=== PATIENT | female | born 1990 | race Caucasian/White ===

== ENCOUNTER 2019-04-05 18:01 | Inpatient (IN) ==
[2019-04-05] MEDS ORDERED: ZOFRAN IV PRN (18:05)
[2019-04-05] MEDS ORDERED: STADOL IV PRN ×2 (18:05)
[2019-04-05] MEDS ORDERED: PEPCID PO PRN (18:05)
[2019-04-05] MEDS ORDERED: PEPCID PO ONE (18:05)
[2019-04-05] MEDS ORDERED: BRETHINE SUBQ PRN (18:05)
[2019-04-05] MEDS ORDERED: REGLAN PO ONE (18:05)
[2019-04-05] MEDS ORDERED: LR 1,000 ML IV ONE (18:05)
[2019-04-05] MEDS ORDERED: TYLENOL PO PRN (18:05)
[2019-04-05] MEDS ORDERED: PEPCID IV PRN (18:05)
[2019-04-05] MEDS ORDERED: KEFZOL 1 GM/D5W 1 GM/50 ML IVPB IV PRN (18:05)
[2019-04-05] MEDS ORDERED: CYTOTEC VAG ONE (18:05)
[2019-04-05] MEDS ORDERED: AMBIEN PO PRN (18:05)
[2019-04-05] MEDS ORDERED: PITOCIN 30 UNITS/NS 30 UNIT/500 ML IV.SOLN IV SCH (18:15)
[2019-04-05 18:39] LABS: BASO# 0.02 X1000 (0.0-0.2); BASO% 0.1 % (0.0-0.8); EOS# 0.11 X1000 (0.0-0.7); EOS% 0.7 % (0.0-10.0); HEMATOCRIT 36.3 % (37.0-47.0); HEMOGLOBIN 11.9 g/dL (12.0-16.0); IMM GRAN# 0.07 X1000 (0.0-0.04); IMM GRAN% 0.4 % (0.0-0.5); LYMPH# 2.43 X1000 (1.2-3.4); LYMPH% 14.4 % (20.5-51.1); MCH 27.2 PG (27-31); MCHC 32.8 g/dL (33-37); MCV 82.9 FL (81-99); MONO# 1.09 X1000 (0.11-0.59); MONO% 6.5 % (1.7-9.3); NEUT# 13.15 X1000 (1.4-6.5); NEUT% 77.9 % (42.2-75.2); PLT 316 X1000 (130-400); RBC 4.38 XMIL (4.2-5.4); RDW 14.9 % (11.5-14.5); WBC 16.87 X1000 (4.8-10.8)
[2019-04-05 19:04] LABS: UR AMPHETAMINES QUAL NONE DETECTED (NONE DETECT); UR BARBITUATES QUAL NONE DETECTED (NONE DETECT); UR BENZODIAZEPIN QUAL NONE DETECTED (NONE DETECT); UR CANNABINOIDS QUAL NONE DETECTED (NONE DETECT); UR COCAINE QUAL NONE DETECTED (NONE DETECT); UR METHADONE QUAL NONE DETECTED (NONE DETECT); UR METHAMPHETAMINE QUAL NONE DETECTED (NONE DETECT); UR OPIATES QUAL NONE DETECTED (NONE DETECT); UR OXYCODONE QUAL NONE DETECTED (NONE DETECT); UR PCP QUAL NONE DETECTED (NONE DETECT); UR PROPOXYPHENE QUAL NONE DETECTED (NONE DETECT); UR TCA QUAL NONE DETECTED (NONE DETECT)
[2019-04-05] MEDS ORDERED: CYTOTEC ONE (20:20)
[2019-04-05] MEDS ORDERED: LR 1,000 ML IV SCH (20:30)
[2019-04-05] MEDS: CYTOTEC VAG SCH (20:32)
--- NOTE | 2019-04-05 22:16 | HISTORY AND PHYSICAL ---
HISTORY OF PRESENT ILLNESS: The patient 29-year-old white female, G1, P0 at 39 weeks gestation by early ultrasound, who is scheduled for induction of labor. The patient's course, she had a 14 week ultrasound scan which identified her due date as 04/12/2019. She had an abnormal quad screen and was seen by the maternal specialist and had a normal level 2 ultrasound and no other abnormalities during this . PAST MEDICAL HISTORY: Unremarkable. PAST SURGICAL HISTORY: None. PAST OB HISTORY: G1. DAIRY NUTRITION SPECIALIST HISTORY: Menarche at age 20. FAMILY HISTORY: Significant for diabetes mellitus. REVIEW OF SYSTEMS: All systems reviewed and noncontributory. SOCIAL HISTORY: Tobacco use, 1 pack per week. Alcohol none. ALLERGIES: No known drug allergies. MEDICATIONS: vitamins. PHYSICAL EXAMINATION: VITAL SIGNS: Height 5 feet 6 inches, weight 219 pounds. Temperature 96.7 degrees, blood pressure 111/61, pulse of 88, respirations 18, heart rate 135 with positive accelerations. HEENT: Pupils equal, round, reactive to light and accommodation. Extraocular movements intact. Oropharynx clear. NECK: Supple. No thyromegaly. LUNGS: Clear to auscultation. HEART: Regular rate and rhythm. ABDOMEN: Gravid, nontender. Cervix was 1 cm dilated, 40% effaced, -2 station. EXTREMITIES: No clubbing, cyanosis, or edema noted. NEUROLOGIC: Cranial nerves 2-12 grossly intact. Motor 5/5. DTRs 2+ bilaterally. ASSESSMENT/PLAN: A 29-year-old white female, G1, P0 at 39 weeks gestation who due to social circumstances has asked to be induced at 39 weeks. The patient will be placed in Labor and Delivery and started on Cytotec for cervical ripening to be followed by Pitocin for induction of labor. The patient's group B strep culture was negative. The patient may have epidural when desired. Anticipate vaginal delivery. cc: Gurinder Rice III, MD
[2019-04-06] MEDS: CYTOTEC VAG SCH ×4 (00:40→08:43)
[2019-04-06] MEDS ORDERED: CYTOTEC ONE (04:43)
--- NOTE | 2019-04-06 07:41 | OB/GYN PROGRESS NOTE ---
Progress Note OB - . Patient Problems: Current Active Problems Problem Status Onset Intrauterine Acute OB Progress Note: Vital Signs - 24 hr 04/05/19 20:04 04/06/19 00:41 Temperature 96.7 F L 96.9 F L Pulse Rate 88 77 Respiratory Rate 18 18 Blood Pressure 111/61 101/58 O2 Sat by Pulse Oximetry 97 96 Laboratory Results - last 24 hr 04/05/19 04/05/19 04/05/19 18:30 18:30 18:38 WBC 16.87 H RBC 4.38 Hgb 11.9 L Hct 36.3 L MCV 82.9 MCH 27.2 MCHC 32.8 L RDW Std Deviation 14.9 H Plt Count 316 MPV 11.0 H Immature Gran % (Auto) 0.4 Neut % (Auto) 77.9 H Lymph % (Auto) 14.4 L [place] % (Auto) 6.5 Eos % (Auto) 0.7 Baso % (Auto) 0.1 Immature Gran # (Auto) 0.07 H Neut # (Auto) 13.15 H Lymph # (Auto) 2.43 [place] # (Auto) 1.09 H Eos # (Auto) 0.11 Baso # (Auto) 0.02 Urine Opiates Screen NONE DETECTED Ur Oxycodone Screen NONE DETECTED Urine Methadone Screen NONE DETECTED U Propoxyphene Qual NONE DETECTED Ur Barbituates Screen NONE DETECTED Ur Tricyclics Screen NONE DETECTED Ur Phencyclidine Scrn NONE DETECTED Ur Amphetamines Screen NONE DETECTED U Methamphetamines Scrn NONE DETECTED U Benzodiazepines Scrn NONE DETECTED Urine Cocaine Screen NONE DETECTED U Cannabinoids Screen NONE DETECTED RPR NON-REACTIVE OB MIL elective at 39wks overnight cytotec srom this am will start OT fht cat1
[2019-04-06] MEDS ORDERED: MINERAL OIL TOP ONE (09:21)
[2019-04-06] MEDS ORDERED: XYLOCAINE-MPF 1% INJ ONE (09:21)
[2019-04-06] MEDS: STADOL IV PRN ×3 (11:19→17:00)
--- NOTE | 2019-04-06 15:14 | OB/GYN PROGRESS NOTE ---
Progress Note OB - . Patient Problems: Current Active Problems Problem Status Onset Intrauterine Acute OB Progress Note: Vital Signs - 24 hr 04/05/19 20:04 04/06/19 00:41 04/06/19 11:47 Temperature 96.7 F L 96.9 F L 96.3 F L Pulse Rate 88 77 53 L Respiratory Rate 18 18 16 Blood Pressure 111/61 101/58 115/75 O2 Sat by Pulse Oximetry 97 96 100 Laboratory Results - last 24 hr 04/05/19 04/05/19 04/05/19 18:30 18:30 18:38 WBC 16.87 H RBC 4.38 Hgb 11.9 L Hct 36.3 L MCV 82.9 MCH 27.2 MCHC 32.8 L RDW Std Deviation 14.9 H Plt Count 316 MPV 11.0 H Immature Gran % (Auto) 0.4 Neut % (Auto) 77.9 H Lymph % (Auto) 14.4 L [place] % (Auto) 6.5 Eos % (Auto) 0.7 Baso % (Auto) 0.1 Immature Gran # (Auto) 0.07 H Neut # (Auto) 13.15 H Lymph # (Auto) 2.43 [place] # (Auto) 1.09 H Eos # (Auto) 0.11 Baso # (Auto) 0.02 Urine Opiates Screen NONE DETECTED Ur Oxycodone Screen NONE DETECTED Urine Methadone Screen NONE DETECTED U Propoxyphene Qual NONE DETECTED Ur Barbituates Screen NONE DETECTED Ur Tricyclics Screen NONE DETECTED Ur Phencyclidine Scrn NONE DETECTED Ur Amphetamines Screen NONE DETECTED U Methamphetamines Scrn NONE DETECTED U Benzodiazepines Scrn NONE DETECTED Urine Cocaine Screen NONE DETECTED U Cannabinoids Screen NONE DETECTED RPR NON-REACTIVE OB progress /-1 breaking out of latent phase iupc placed ot on fht cat 1-2 anticipate
[2019-04-06] MEDS ORDERED: BICITRA PO ONE (21:30)
[2019-04-06] MEDS ORDERED: REGLAN IV ONE (21:30)
[2019-04-06] MEDS ORDERED: FENTANYL IV SCH (21:30)
[2019-04-06] MEDS ORDERED: FENTANYL-BUPIV-NS 2 MCG-0.1% 250 ML EPIDURAL SCH ×2 (22:00)
[2019-04-06] MEDS ORDERED: BUPIVACAINE ONE (22:03)
[2019-04-06] MEDS ORDERED: DEXTROSE ONE (22:03)
[2019-04-06] MEDS ORDERED: SODIUM CHLORIDE 0.9% 10 ML ONE (22:17)
[2019-04-06] MEDS ORDERED: EPHEDRINE ONE (22:17)
--- NOTE | 2019-04-06 23:28 | OB/GYN PROGRESS NOTE ---
Progress Note OB - . Patient Problems: Current Active Problems Problem Status Onset Intrauterine Acute OB Progress Note: Vital Signs - 24 hr 04/06/19 00:41 04/06/19 11:47 04/06/19 15:40 Temperature 96.9 F L 96.3 F L 97.1 F L Pulse Rate 77 53 L 82 Respiratory Rate 18 16 18 Blood Pressure 101/58 115/75 123/81 O2 Sat by Pulse Oximetry 96 100 99 OB proigress dina cardia episode, ephedrine and terb recovered nicely now cat 1 rim 0 station continue labor
[2019-04-07] MEDS ORDERED: BENADRYL PO PRN (02:32)
[2019-04-07] MEDS ORDERED: M-M-R II VACCINE SUBQ ONE (02:32)
[2019-04-07] MEDS ORDERED: MOTRIN PO PRN (02:32)
[2019-04-07] MEDS ORDERED: PITOCIN IM PRN (02:32)
[2019-04-07] MEDS ORDERED: BOOSTRIX VACCINE IM ONE (02:32)
[2019-04-07] MEDS ORDERED: PERI MEDS (DERMOPLAST/NUPERCAINAL/TUCKS) MISC PRN (02:32)
[2019-04-07] MEDS ORDERED: CYTOTEC PO PRN (02:32)
[2019-04-07] MEDS ORDERED: MINERAL OIL PO PRN (02:32)
[2019-04-07] MEDS ORDERED: XYLOCAINE-MPF 1% INJ PRN (02:32)
[2019-04-07] MEDS ORDERED: BENADRYL IV PRN (02:32)
[2019-04-07] MEDS ORDERED: PITOCIN 30 UNITS/NS 30 UNIT/500 ML IV.SOLN IV SCH (02:45)
[2019-04-07] MEDS ORDERED: PITOCIN 20 UNITS/NS 20 UNITS/1,000 ML IV.SOLN IV SCH (02:45)
--- NOTE | 2019-04-07 04:33 | OPERATIVE NOTE ---
PROCEDURE DATE: PREPROCEDURE DIAGNOSES: 1. Primiparity. 2. Elective induction of labor at 39 weeks. POSTPROCEDURE DIAGNOSES: 1. Primiparity. 2. Elective induction of labor at 39 weeks. 3. Liveborn delivered. ANESTHESIA: Epidural anesthesia. DESCRIPTION OF PROCEDURE: The patient was admitted for induction of labor. She underwent Cytotec induction with spontaneous rupture of membranes, and oxytocin made somewhat slow progress to 1st stage. Second stage of labor was shortened to approximately 30 minutes where she delivered a live-born male over an intact perineum. The was handed to the maternal abdomen where the cord was clamped x2 and cut. The nuchal cord was reduced on the pelvis. The placenta delivered intact with a three-vessel cord with a spontaneous expulsion. Apgars are 7 and 9, and weight is 7 pounds and 2 ounces. cc: Gurinder Rice III, MD
[2019-04-07] MEDS: PERICOLACE PO SCH (21:33)
[2019-04-08 05:12] LABS: BASO# 0.02 X1000 (0.0-0.2); BASO% 0.1 % (0.0-0.8); EOS# 0.14 X1000 (0.0-0.7); EOS% 0.8 % (0.0-10.0); HEMATOCRIT 32.7 % (37.0-47.0); HEMOGLOBIN 10.3 g/dL (12.0-16.0); IMM GRAN# 0.06 X1000 (0.0-0.04); IMM GRAN% 0.4 % (0.0-0.5); LYMPH# 3.29 X1000 (1.2-3.4); LYMPH% 19.3 % (20.5-51.1); MCH 26.3 PG (27-31); MCHC 31.5 g/dL (33-37); MCV 83.6 FL (81-99); MONO# 1.66 X1000 (0.11-0.59); MONO% 9.8 % (1.7-9.3); MPV 10.9 FL (7.4-10.4); NEUT# 11.84 X1000 (1.4-6.5); NEUT% 69.6 % (42.2-75.2); PLT 277 X1000 (130-400); RBC 3.91 XMIL (4.2-5.4); RDW 14.9 % (11.5-14.5); WBC 17.01 X1000 (4.8-10.8)
--- NOTE | 2019-04-08 07:12 | OB/GYN PROGRESS NOTE ---
Progress Note OB - . Patient Problems: Current Active Problems Problem Status Onset Intrauterine Acute OB Progress Note: Vital Signs - 24 hr 04/07/19 07:42 04/07/19 12:56 04/07/19 16:00 Temperature 97.4 F L 97 F L 97.6 F Pulse Rate 97 H 102 H 102 H Respiratory Rate 20 18 18 Blood Pressure 105/65 120/70 118/60 O2 Sat by Pulse Oximetry 99 98 98 04/07/19 21:24 04/08/19 05:48 Temperature 97.5 F L 97.2 F L Pulse Rate 98 H 86 Respiratory Rate 18 18 Blood Pressure 111/78 128/75 O2 Sat by Pulse Oximetry Laboratory Results - last 24 hr 04/08/19 04:58 WBC 17.01 H RBC 3.91 L Hgb 10.3 L Hct 32.7 L MCV 83.6 MCH 26.3 L MCHC 31.5 L RDW Std Deviation 14.9 H Plt Count 277 MPV 10.9 H Immature Gran % (Auto) 0.4 Neut % (Auto) 69.6 Lymph % (Auto) 19.3 L [place] % (Auto) 9.8 H Eos % (Auto) 0.8 Baso % (Auto) 0.1 Immature Gran # (Auto) 0.06 H Neut # (Auto) 11.84 H Lymph # (Auto) 3.29 [place] # (Auto) 1.66 H Eos # (Auto) 0.14 Baso # (Auto) 0.02 PP1 no cx s/nt -cce hgb 10.3 breast home in am disscussed ambulation
[2019-04-09] MEDS: PERICOLACE PO SCH (06:26)
[2019-04-09] MEDS ORDERED: FLU VACCINE IM ONE (07:24)
[2019-04-09] MEDS ORDERED: PNEUMOVAX 23 IM ONE (07:25)
--- NOTE | 2019-04-09 08:00 | OB/GYN PROGRESS NOTE ---
Progress Note OB - . OB Progress Note: Vital Signs - 24 hr 04/08/19 07:54 04/08/19 12:00 04/08/19 16:00 Temperature 97.1 F L 98.0 F 97.1 F L Pulse Rate 85 99 H 97 H Respiratory Rate 18 18 18 Blood Pressure 121/81 117/60 117/71 O2 Sat by Pulse Oximetry 99 98 99 04/08/19 20:40 Temperature 97.7 F Pulse Rate 78 Respiratory Rate 18 Blood Pressure 113/77 O2 Sat by Pulse Oximetry Do is doing well, now PPD#2. is tearful at times due to DHR case with baby. Awaiting meconium results "once that is back I will be fine, this is just stupid." Denies drug use. Patient denies depression issues or any suicidal or homicidal ideation. [facility] has good support and a safe place to live. FOB not involved. Patient is a smoker - approximately 1 pack a week. She has not smoked since admitted. Discussed with Do risk of smoking for baby including increased risks of asthma/lung problems as well as SIDS for moms that smoke. Continued cessation encouraged. Patient is and states that is going well and she plans on continuing . Encouraged increase in water intake. Lanolin or coconut oil as well as breast milk to dry on nipples discussed. Lochia minimal per patient. No CP or SOB. No lightheadedness or dizziness. No headache. No difficulty ambulating or urinating. No perineal complaints. PE: A&O x 3 NAD CV- RRR Lungs- CTA bilaterally Abd- soft ND and NT no R/G. Uterus firm below umbilicus. Pelvic - deferred Ext- no edema and no calf pain bilaterally. ASSESSMENT: PPD#2 S/P after successful induction at 39 weeks gestation. DISCHARGE NOTE. PLAN: 1. Discharge to home. director of child welfare services note reviewed and discussed with nursing staff and [facility] plan in place for discharge. Awaiting Meconium results. 2. Follow up for Post check within 6 weeks. Patient states already has appointment scheduled. Discussed with patient consideration for control and options discussed. Will think about choices. 3. Breast feeding - continue PNV use daily and increase water intake. Breast care discussed. 4. Smoker - health risks and risks to infant discussed and cessation strongly encouraged. Congratulated on not smoking for the past 2-3 days. Denies drug use. 5. Post depression risks discussed. Denies any issues at present. If signs or symptoms of depression to seek care sooner and call Dr. Rice's office. 6. Discharge instructions discussed. Recommended no driving for approximately 7-10 days or until pain free. No heavy lifting - baby or less weight for 4 weeks and then can gradually start lifting heavier objects. NO sex and nothing in vagina for 6 weeks. States understanding. 7. Rx motrin 600mg po q 6 hours #30 and no refills written and given. Continue PNV use.
[2019-04-09 08:18] VITALS: BP 112/76
== END 2019-04-09 09:15 | disposition home or self-care (01) | DRG 807 ==
LOC: P.LD 18:01
PROVIDERS: ADMIT Obstetrics & Gynecology; ATTEND Obstetrics & Gynecology